=== PATIENT | male | born 1950 | race Caucasian/White ===

== ENCOUNTER → 2018-07-06 | Outpatient (CLI) | payer MEDICARE ==
[~2018-07-06] MED LIST: ALBU90OI6 INH; LISI20 PO; PRED20 PO; QVAR7.3 G1 IH
== END ==
LOC: LAB EV 07:35 → LAB SHORT 07:35
DX: M10.9 Gout, unspecified (principal)
CPT/HCPCS: 84550

== ENCOUNTER 2020-02-04 08:05 | Day surgery (SDC) | payer MEDICARE ==
[2020-02-08 14:28] LABS: Performing Lab STMBIODX; Test Name TISSUE BIOPSY
== END 2020-02-04 22:44 | disposition home or self-care (01) ==
LOC: MOI US 08:05 → US 08:30 → MOI US 08:30 → US 14:00 → MOI US 22:44
PROVIDERS: Pathology Clinical Pathology/Laboratory Medicine
DX: R22.2 Localized swelling, mass and lump, trunk (principal)
CPT/HCPCS: 38505; 76942

== ENCOUNTER 2020-02-25 06:51 | Day surgery (SDC) | payer MEDICARE ==
[~2020-02-25] VITALS: Ht 188 cm; Wt 149.0 kg
[~2020-02-25 06:51] MED LIST changes: +ALLO300 PO; +CENTRUM SILVER1 EAC2 PO; +SYMBICORT 160-4.6 GM INH; +TYLENOL PM PO
--- NOTE | 2020-02-25 08:51 | NUR ---
HEARING AIDS LEFT IN PER ANNESTHISIOLOGIS GLASSES AND PHONE PLACED IN SHOE WITH BELONGINGS
--- NOTE | 2020-02-25 08:52 | NUR ---
Ambulatory in Day Surgery Patient States Post-Procedure ride home has been arranged. Patient confirms NPO status and agrees with scheduled surgery.
--- NOTE | 2020-02-25 10:56 | NUR ---
Discharge instructions reviewed with patient. Patient verbalizes understanding. Copy given to patient to take home. [facility] C/D/I. Patient States Post-Procedure ride home has been arranged. Discharged via wheelchair to private car for ride home.
== END 2020-02-25 12:00 | disposition home or self-care (01) ==
LOC: ORSCMMR 06:51 → ORD 08:30 → ORSCMMR 08:30
PROVIDERS: Surgery
PROC: 05HM33Z Insertion of Infusion Device into Right Internal Jugular Vein, Percutaneous Approach (ICD-10-PCS; principal; 2020-02-25 08:30)
PROC: B5131ZA Fluoroscopy of Right Jugular Veins using Low Osmolar Contrast, Guidance (ICD-10-PCS; principal; 2020-02-25 08:30)
DX: C85.90 Non-Hodgkin lymphoma, unspecified, unspecified site (principal); I10 Essential (primary) hypertension; J44.9 Chronic obstructive pulmonary disease, unspecified; Z87.891 Personal history of nicotine dependence; E66.01 Morbid (severe) obesity due to excess calories; Z68.41 Body mass index [BMI] 40.0-44.9, adult; Z79.899 Other long term (current) drug therapy
CPT/HCPCS: 77001; C1788; J0690; J1100; J1642; J2250; J2405; J2704; J7120

== ENCOUNTER 2021-04-03 12:02 | Day surgery (SDC) | payer MEDICARE ==
[~2021-04-03] VITALS: Ht 190.5 cm; Wt 139.5 kg
[~2021-04-03 12:02] MED LIST changes: +ALBU90OI; +Acetaminophen500 MG; +DIPH25; +ONDA8 PO; +SYMBICORT 160-4.6 GM
== END 2021-04-03 14:20 | disposition home or self-care (01) ==
LOC: ORSCSDS 12:02 → ORD 13:00 → ORSCSDS 13:00
PROVIDERS: Surgery
PROC: 0DBN8ZX Excision of Sigmoid Colon, Via Natural or Artificial Opening Endoscopic, Diagnostic (ICD-10-PCS; principal; 2021-04-03 13:00)
PROC: 3E0H8KZ Introduction of Other Diagnostic Substance into Lower GI, Via Natural or Artificial Opening Endoscopic (ICD-10-PCS; principal; 2021-04-03 13:00)
DX: K62.9 Disease of anus and rectum, unspecified (principal); D12.5 Benign neoplasm of sigmoid colon; J44.9 Chronic obstructive pulmonary disease, unspecified; C83.34 Diffuse large B-cell lymphoma, lymph nodes of axilla and upper limb; I10 Essential (primary) hypertension; E78.5 Hyperlipidemia, unspecified; Z79.899 Other long term (current) drug therapy; Z87.891 Personal history of nicotine dependence
CPT/HCPCS: 88305; J2704; J7120